=== PATIENT | female | born 1965 | race Caucasian/White ===

== ENCOUNTER → 2017-03-29 | Outpatient (CLI) | payer BC ==
[~2017-03-29] MED LIST: ALLERGY25 MG PO; DUAVEE 0.45-201 EACH PO; ELMIRON100 MG PO; GARCINIA CAMBO1 EACH PO; OXYBUTYNIN15 MG/BOTT PO
--- NOTE | ~2017-03-29 | CT77 ---
[facility] A Service of [facility] & [facility] RADIOLOGY TEXT RESULTS PATIENT: SHERRY ZAMBRANO LOCATION: [facility] EDT : 65 UNIT #: [id number] AGE: [address]: BARRY MCMAHON SEX: F ORDER DR: [id number] [facility] [address] [place], [place] [address] [id number] O MR#: [id number] Acc #: [id number] NAME: SHERRY ZAMBRANO : 1965 SEX: F STUDY DATE/TIME: 03/29/2017 15:50 UNIT: [facility] ROOM: STUDY DESCRIPTION: CT IAC, Sella, Temporal Bone W Attending Physician: Barry Mcmahon M.D. Referring Physician: Barry Mcmahon M.D. Ordering Physician: Physician Non-Staff Primary Care Physician: Lisbeth Johnson M.D. MEDICAL IMAGING REPORT This report is preliminary unless electronic signature is present EXAM CT of the temporal bone without contrast dated 03/29/2017. COMPARISON MRI of the brain and internal auditory canals with and without contrast dated 10/22/2014. HISTORY Dizziness and vertigo for 4 years, worse today. FINDINGS CT of the temporal bone was obtained without contrast in the axial plane followed by coronal, Poschl's and Stenver's plane reconstructions. This CT exam was performed with one or more of the following radiation dose reduction techniques: Automatic exposure control, adjustment of mA and/or kV according to patient size, and iterative reconstruction. Bilateral mastoid air cells are well aerated. Bilateral external auditory canal and the tympanic membrane do not demonstrate any significant abnormality. Bilateral middle ear cavities including the middle ear ossicles, sinus tympani, facial recess, pyramidal eminence, oval window niche and cochlear promontory are within normal limits. The expected course and caliber of bilateral seventh nerves are within normal limits. Bilateral inner ear structures including the cochlea, vestibule, semicircular canals are within normal limits. Internal auditory canals are unremarkable. Adjacent visualized posterior fossa does not demonstrate any significant abnormality. Mild nasal septal deviation is noted to the right in the posterior aspect with relatively well-aerated visualized paranasal sinuses. IMPRESSION Within normal limits. [facility] A Service of [facility] & [facility] RADIOLOGY TEXT RESULTS PATIENT: SHERRY ZAMBRANO LOCATION: [facility] : 65 UNIT #: [id number] AGE: [address]: BARRY MCMAHON SEX: F ORDER DR: Dictated by... Carolina Nagel M.D. THIS IS AN ELECTRONICALLY VERIFIED REPORT Carolina Nagel M.D. at 04/02/2017 7:54 PM CPR/psc TD: 03/31/2017 01:42 JOB #: [id number] MEDICAL IMAGING REPORT Page 1 of 1 COPY
== END | disposition home or self-care (01) ==
LOC: CCAT 15:10
DX: R42 Dizziness and giddiness (principal)
CPT/HCPCS: 70480